=== PATIENT | male | born 1975 | race Two or more races ===

== ENCOUNTER 2018-03-07 12:33 | Emergency (ER) | payer BC ==
[~2018-03-07] VITALS: Ht 167.6 cm; Wt 117.9 kg
--- NOTE | 2018-03-07 13:44 | EKG ---
[facility] [address] [place] [address] Test Date: 2018-03-07 Test Time: 13:30:09 Pat Name: RAKESH MARADIAGA Department: Room: Gender: M Dental Therapist: : 1975 Requested By: SHAW VOSS Order Number: [id number] Reading MD: Delmar Higginbotham MD Measurements Intervals [place] Rate: 77 P: 39 AL: 168 QRS: -1 QRSD: 88 T: 38 QT: 352 QTc: 400 Interpretive Statements SINUS RHYTHM Electronically Signed On 03-07-2018 15:35:56 TRANSPORTATION REFRIGERATION TECHNICIAN by Delmar Higginbotham MD
[2018-03-07 13:47] LABS: BASO # 0.1 x10^3/uL (0.0-0.2); BASO % 1 % (0-3); EOS # 0.4 x10^3/uL (0.0-0.7); EOS % 5 % (0-3); HEMATOCRIT 45.8 % (39.0-53.0); HEMOGLOBIN 15.8 g/dL (13.0-17.5); LYMPH # 1.8 x10^3/uL (1.0-4.8); LYMPH % 20 % (24-48); MEAN CORPUSCULAR HEMOGLOBIN 31 pg (25-35); MEAN CORPUSCULAR HGB CONC 34 g/dL (31-37); MEAN CORPUSCULAR VOLUME 91 fL (79-100); MONO # 0.8 x10^3/uL (0.0-1.1); MONO % 9 % (0-9); NEUT # 6.2 x10^3uL (1.8-7.7); NEUT % 66 % (31-73); PLATELET COUNT 277 x10^3/uL (140-400); RED BLOOD COUNT 5.06 x10^6/uL (4.30-5.70); RED CELL DISTRIBUTION WIDTH 13.5 % (11.5-14.5); WHITE BLOOD COUNT 9.3 x10^3/uL (4.0-11.0)
--- NOTE | 2018-03-07 13:53 | RAD ---
CT HEAD WO CONTRAST Clinical indications: NUMBNESS, TINGLING, RIGHT EYE BLURRY COMPARISON: None available. Technique: Noncontrast axial cross sectional scanning of the head was performed. PQRS compliance Statement One or more of the following individualized dose reduction techniques were utilized for this study: 1. Automated exposure control 2. Adjustment of the mA and/or kV according to patient size 3. Use of iterative reconstruction technique Findings: No acute intracranial hemorrhage or midline shift or mass-effect or hydrocephalus or extra-axial fluid collection is seen. No focal hypodense area or sulci effacement is seen to indicate an acute infarct or edema radiographically. No skull fracture or pneumocephalus is seen. No opacification of the mastoid sinuses or the paranasal sinuses is seen. The maxillary sinuses are not completely seen in this study. Impression: No acute intracranial abnormality is seen. Electronically signed by: Arvin Bingham MD (03/07/2018 1:50 PM) [facility]
--- NOTE | 2018-03-07 13:56 | RAD ---
CHEST PA LATERAL Clinical indications: arm and feet tingling x2days palpitations. COMPARISON: None available. Findings: No acute lung infiltrate or pleural effusion or pulmonary edema or lung mass or pneumothorax is seen. There is cephalization of pulmonary flow. The azygos vein appears prominent. This may be findings of early CHF or fluid overload. The osseous structures appear intact. Impression: Cephalization of pulmonary flow and the azygos vein appears prominent. This may be findings of early CHF or fluid overload. Electronically signed by: Arvin Bingham MD (03/07/2018 1:53 PM) [place] [id number]
[2018-03-07 14:00] VITALS: BP 131/76
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
[2018-03-07 14:42] LABS: CALCIUM 8.9 mg/dL (8.5-10.1); GFR 81.2; POTASSIUM 4.2 mmol/L (3.5-5.1)
[2018-03-07 14:48] LABS: ALBUMIN 3.4 g/dL (3.4-5.0); ALBUMIN/GLOBULIN RATIO 1.1 (1.0-1.7); TOTAL BILIRUBIN 0.3 mg/dL (0.2-1.0); TOTAL PROTEIN 6.4 g/dL (6.4-8.2)
== END 2018-03-07 16:45 | disposition home or self-care (01) ==
LOC: ER 12:33
DX: R20.2 Paresthesia of skin (principal); R00.2 Palpitations; J45.909 Unspecified asthma, uncomplicated; Z91.012 Allergy to eggs; Z91.013 Allergy to seafood
CPT/HCPCS: 36415; 70450; 71046; 80053; 83880; 84484; 85025; 93005; 99285-25

== ENCOUNTER 2018-06-13 12:34 | Emergency (ER) | payer OTHER, BC ==
[~2018-06-13] VITALS: Ht 167.6 cm; Wt 124.7 kg
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
[2018-06-13] MEDS ORDERED: HYDROcodone/APAP 5/325MG 1 TAB TABLET PO ONE (14:30)
[2018-06-13] MEDS ORDERED: CYCL10TA2 PO (14:53)
[2018-06-13] MEDS ORDERED: HYDR-2761 PO (14:53)
[2018-06-13 15:00] VITALS: BP 144/69
== END 2018-06-13 15:02 | disposition home or self-care (01) ==
LOC: ER 12:34
DX: S16.1XXA Strain of muscle, fascia and tendon at neck level, initial encounter (principal); G89.29 Other chronic pain; J45.909 Unspecified asthma, uncomplicated; V43.52XA Car driver injured in collision with other type car in traffic accident, initial encounter; Y93.89 Activity, other specified; Y92.410 Unspecified street and highway as the place of occurrence of the external cause; Y99.8 Other external cause status; Z91.012 Allergy to eggs; Z91.013 Allergy to seafood
CPT/HCPCS: 72125; 99284